=== PATIENT | male | born 1960 | race Caucasian/White ===

== ENCOUNTER 2023-10-06 13:08 | Outpatient (CLI) | payer BC, MEDICARE ==
--- NOTE | 2023-10-07 23:57 | Ultrasound Report ---
PROCEDURE: Head or Neck Soft Tissue INDICATIONS: MNG TECHNIQUE: Real-time scanning was performed of the thyroid gland, with image documentation. COMPARISON: No prior studies are available for review at the time of this dictation. FINDINGS: Right: Thyroid lobe measures 5.7 x 1.9 x 2.2 cm, and is homogeneous in echotexture. Left: Thyroid lobe measures 5.1 x 2.0 x 2.2 cm, and is homogenous in echotexture. Isthmus: 6 mm thick. IMPRESSION: Prominent sized thyroid. No focal thyroid nodules are seen on these images. Reviewed by: Bg Lamar MD on 10/07/2023 10:55 PM [facility] Approved by: Bg Lamar MD on 10/07/2023 10:55 PM [facility] Station ID: [id number]
== END 2023-10-06 13:09 | disposition home or self-care (01) ==
LOC: DI 13:08
PROVIDERS: ATTEND Internal Medicine
DX: E04.9 Nontoxic goiter, unspecified (principal)

== ENCOUNTER 2024-03-12 13:05 | Outpatient (CLI) | payer BC, MEDICARE ==
[2024-03-12 13:28] LABS: BASOPHILS % (AUTO) 0.6 %; EOSINOPHILS # (AUTO) 0.2 10^3/uL (0.0-0.7); EOSINOPHILS % (AUTO) 2.3 %; HCT - HEMATOCRIT 51.8 % (42.0-52.0); HGB - HEMOGLOBIN 16.4 g/dL (14.0-18.0); LYMPHOCYTES # (AUTO) 2.6 10^3/uL (1.5-3.5); LYMPHOCYTES % (AUTO) 37.8 %; MEAN CORPUSCULAR HEMOGLOBIN 28.5 pg (27.0-31.0); MEAN CORPUSCULAR HGB CONC 31.7 g/dL (32.0-36.0); MEAN CORPUSCULAR VOLUME 89.9 fL (80.0-94.0); MEAN PLATELET VOLUME 9.2 fL (7.4-11.4); MONOCYTES # (AUTO) 0.6 10^3/uL (0.0-1.0); MONOCYTES % (AUTO) 8.5 %; NEUTROPHILS # (AUTO) 3.5 10^3/uL (1.5-6.6); NEUTROPHILS % (AUTO) 50.7 %; PLT - PLATELET COUNT 261 10^3/uL (130-450); RED BLOOD COUNT 5.76 10^6/uL (4.70-6.10); RED CELL DISTRIBUTION WIDTH 13.5 % (12.0-15.0); WHITE BLOOD COUNT 6.9 x10^3/uL (4.8-10.8)
[2024-03-12 13:47] LABS: ALBUMIN 4.5 g/dL (3.2-5.5); ALBUMIN/GLOBULIN RATIO 1.4 (1.0-2.2); ALKALINE PHOSPHATASE 72 IU/L (42-121); ALT ALANINE AMINOTRANSFERASE 92 IU/L (10-60); AST ASPARTATE AMINOTRANSFERASE 60 IU/L (10-42); BILIRUBIN,TOTAL 0.8 mg/dL (0.2-1.0); BUN - BLOOD UREA NITROGEN 13 mg/dL (6-20); CALCIUM 9.9 mg/dL (8.5-10.3); CARBON DIOXIDE - CO2 26 mmol/L (21-32); CHLORIDE 102 mmol/L (101-111); CHOL/HDL RATIO 3.3 (<5.0); CHOLESTEROL 140 mg/dL; CREATININE 1.1 mg/dL (0.6-1.3); GFR - MDRD 67 (>89); GLUCOSE 121 mg/dL (74-104); HDL CHOLESTEROL 43 mg/dL; LDL CHOLESTEROL,CALCULATED 60 mg/dL; LDL/HDL RATIO 1.4 (<3.6); SODIUM 136 mmol/L (135-145); TOTAL PROTEIN 7.8 g/dL (6.4-8.9); TRIGLYCERIDES 184 mg/dL (48-352); VLDL CHOLESTEROL 37 mg/dL
[2024-03-12 14:01] LABS: THYROID STIMULATING HORMONE 2.18 uIU/mL (0.34-5.60)
[2024-03-12 20:20] LABS: ESTIMATED AVERAGE GLUCOSE 183 mg/dL (70-100)
== END 2024-03-12 13:06 | disposition home or self-care (01) ==
LOC: LAB 13:05
PROVIDERS: ATTEND Nurse Practitioner Family
DX: I10 Essential (primary) hypertension (principal); E11.65 Type 2 diabetes mellitus with hyperglycemia; Z12.5 Encounter for screening for malignant neoplasm of prostate
CPT/HCPCS: 36415; 80053; 80061; 82043; 83036; 83721; 84153; 84443; 85025

== ENCOUNTER 2024-05-07 15:00 | Outpatient (CLI) | payer BC, MEDICARE ==
--- NOTE | 2024-05-07 15:56 | Sleep Patient Instructions ---
Sleep Center Visit Summary - Patient Visit Information Reason for Visit: Initial consult for evaluation of sleep disordered breathing and other sleep issues. - Patient Instructions Additional Instructions: You will be completing a sleep study, either an in-lab polysomnography (PSG) or home sleep study (HST). You will follow-up in the sleep care office after the sleep study is completed to hear the results and talk about therapy, if needed. You will be called by our office staff to schedule this appointment, but you may contact us with any questions. - Clinic Information Contact: [facility] [address] [place] [id number] [email or web address] T: [phone]
--- NOTE | 2024-05-07 16:04 | SLEEP CARE CONSULTATION ---
Information from patient questionnaire entered by Laura Gonzáles. I have reviewed and concur with the information entered by Laura Gonzáles. This document represents the service I personally performed and the decisions made by me, Dennise Arnett ARNP. History of Present Illness Service Date and Time: 05/07/2024 1500 Reason for Visit: New patient, Previously diagnosed sleep apnea, sleep apnea on CPAP therapy Chief Complaint: reports: Other (UPDATE SUPPLIES) Usual bedtime: 2130 Time it takes to fall asleep: 5MINS Snores at night: Yes Observed to quit breathing while asleep: Yes Sleeps alone due to snoring: No Number of times waking at night: 0 Reasons for waking at night: reports: Bathroom Toss, Turn, or Twitch while sleeping: Yes Recalls having dreams: Yes Usually gets out of bed at: 0500 Feels refreshed in the morning: Yes Morning headache: No Sleepy or fatigued during the day: Yes Ever fallen asleep while driving: No Takes day naps: Yes Dreams during day naps: No Prior sleep studies: Yes Year and Where: [place]?, [place] 2004- Additional HPI information: CORDELIA PAYTON was previously diagnosed to have unknown, AHI unknown, sleep apnea- hypopnea syndrome and comes in today for CPAP therapy. He has not been back to see a sleep provider for about 20 years. He does not remember the name of the place that did his last sleep study. His machine is aging and has not been replaced since around 2004 or . - Parasomnia Symptoms Ever been unable to move upon waking from sleep: Yes Walks in sleep: No Talks in sleep: No Ever acted out dreams in sleep: No Ever felt weak in the knees when startled or emotional: Yes Bothered by creepy, crawly, restless sensations in legs: No Problems with memory or concentration: No CPAP Compliance Data - Data Reviewed with Patient Average duration of nightly device use: 5 hours 54 minutes Compliance rate %: 93.3 (03/07/2023-09/02/2023; 180/180 days used) Current pressure setting (cmH2O): 17 Average residual AHI: 0 (unknown value, not listed on download) Compliance data discussion: He has a REMstar CPAP that he received about 20 years. He is getting his supplies online. He is using a nasal pillows mask, Resmed Airfit P10. He has a spare mask if needed. Subjective Patient concerns: denies: aerophagia, mask discomfort, air blowing in eyes, mask leak noise, condensation in mask/hose, nasal congestion, dry mouth, nose, throat, epistaxis Observed to snore while using device: No Current pressure setting perceived as: comfortable On therapy, patient: reports: sleeping better, awakening more refreshed, being more awake and alert during the day, more rested overall. 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 Patient is and lives in [place]. Have you smoked in the past 12 months: No Alcohol use: Yes Alcohol amount and frequency: 6OZ 4 X PER YR Caffeine use: Yes Caffeine amount and frequency: 12OZ 8X PER YR Family History Family history of sleep disordered breathing: Yes Family Hx Sleep Apnea: Other: Snoring (DAUGHTER/SON), Sleep apnea - Treated (DAUGHTER), Sleep apnea - Untreated (SON) Allergies and Home Medications Known drug allergies: Yes ( LISTED ) Drug allergies reviewed: Yes Home medication list reviewed: Yes (as listed) Allergy and home medication list: Allergies dapagliflozin [From [facility]] Allergy (Verified 05/03/24 13:30) Medications: Metformin 500 mg 5 times a day bupropion 150 mg twice a day Jardiance 25 mg daily Ramipril 10 mg daily Amlodipine 5 mg daily Vitamin D3 2000 IU daily MVT daily Review of Systems Weight gain over past 5 years: 10 Weight loss over past 5 years: 10 Cardiovascular: reports: high blood pressure Gastrointestinal: reports: diarrhea. denies: heartburn Urinary: reports: incontinence, urgency Neurological: denies: seizure, head trauma Psychiatric: reports: depression Ear/Nose/Throat: reports: wisdom teeth removed. denies: injury to nose, tonsillectomy Endocrine: reports: history of goiter, increased urination Musculoskeletal: reports: joint pain Physical Exam Vital signs obtained and entered by: DENNISE ARELLANO Blood Pressure: 126/84 Cuff size: long (right arm) Heart Rate: 97 O2 Saturation: 96 Height: 5 ft 11.5 in Weight: 306 lb Body Mass Index: 42.0 BMI Classification: Morbidly Obese Neck circumference: 18.5 Mouth and throat: narrow oropharynx Soft palate: long Hard palate: normal Uvula: normal Uvula visualization: 25% Mallampati Class III Tongue: normal in size Tonsils: 1+ Heart: regular rate and rhythm Lungs: clear bilaterally Impression and Plan 1. Obstructive Sleep Apnea-Hypopnea Syndrome, unknown, with good treatment compliance and unknown apnea control. On CPAP therapy, the patient has better sleep quality and is more rested overall. Patient appears to have significant improvement of his sleep apnea and is comfortable with CPAP therapy. He does feel the pressure may be a little low at this time but his machine as at least 20 years old. We discussed that we will first need to do a sleep study to verify diagnosis and severity. At the follow-up, we will set him up with a new DME machine replacement. He voiced understanding and agreement with plan of care. Patient's apnea severity and rationale for treatment to reduce apnea, improve sleep quality and reduce cardiovascular and cerebrovascular events was reviewed. I also reviewed the benefit of consistent device use of CPAP for hypertension, cardiac disease, arrhythmia, diabetes, depression. 2. Obesity, unspecified. Currently patients BMI is 42. Obesity increases the risk of apnea, CPAP pressure requirements and overall health risks especially cardiovascular and diabetes. Thus patient is advised to lose weight. * Continue CPAP pressure at 17 cmH2O * PSG to verify diagnosis and severity * Update supply prescription * Notify me if snoring with mask or feeling that the pressure is too much or too little * Attempt to lose weight * Call this office if any problems using CPAP * Return for follow up after sleep study, or sooner if concerns arise Continue with device pressure at (cmH2O): 17 Counseling Topics: Spare mask, Weight loss health impact Plan: PSG and follow up Visit Type: In Office Time Spent with Patient (minutes): 38 Provider Statement: I spent 100% of the Face to Face Visit with the patient with greater than 50% spent counseling the patient and coordination of care.
[2024-05-07 16:12] VITALS: BP 126/84; O2SAT 96
== END 2024-05-07 15:01 | disposition home or self-care (01) ==
LOC: SC 15:00
PROVIDERS: ATTEND Nurse Practitioner Family
DX: G47.33 Obstructive sleep apnea (adult) (pediatric) (principal); E66.01 Morbid (severe) obesity due to excess calories; Z68.41 Body mass index [BMI] 40.0-44.9, adult; I49.9 Cardiac arrhythmia, unspecified; F32.A Depression, unspecified; E11.9 Type 2 diabetes mellitus without complications; I10 Essential (primary) hypertension
CPT/HCPCS: 99203; 99212

== ENCOUNTER 2024-05-23 14:01 | Outpatient (CLI) | payer BC, MEDICARE | END 2024-05-23 14:02 | disposition home or self-care (01) | LOC: SC 14:01 | PROVIDERS: ATTEND Nurse Practitioner Family | DX: G47.33 Obstructive sleep apnea (adult) (pediatric) (principal); R09.02 Hypoxemia | CPT/HCPCS: 95806 ==

== ENCOUNTER 2024-06-21 09:47 | Outpatient (CLI) | payer BC, MEDICARE ==
--- NOTE | 2024-06-21 09:49 | SLEEP CARE CONSULTATION ---
Information from patient questionnaire entered by Laura Gonzáles. I have reviewed and concur with the information entered by Laura Gonzáles. This document represents the service I personally performed and the decisions made by , Dennise Arnett ARNP. History of Present Illness Service Date and Time: 06/21/2024919 Initial [place] Sleepiness Scale score: 14 (05/07/24) Current [place] Sleepiness Scale score: 16 (06/21/24) Additional HPI information: CORDELIA PAYTON returns via video appointment today for follow up and results of the recently performed home sleep study. The sleep study done on 05/23/24 showed severe obstructive sleep apnea with an average AHI of 51 and eladio oxygen saturation of 77%. Patient is currently on a CPAP with pressure set at 17 cmH2O with significant improvement of his sleep apnea. After some discussion, the patient will continue with the nasal CPAP therapy. Sleep Study - Results Type of Sleep Study: Home sleep study (COMPLETED 05/23/24) Prior sleep studies: Yes Year and Where: [facility], [place] 2004- Polysomnography/Home Sleep Study results: Physician Impression: The quality of the study is good. The length of the study is adequate (> 240 minutes). Please also see the tabulated and graphic data. 1. Obstructive Sleep Apnea-Hypopnea (ICD-10 G47.33), severe, with an AHI of 51.0/hr and eladio SaO2 of 77%. During the study, the patient had 239 apneas (239 obstructive, 0 central, 0 mixed) and 100 hypopneas. The longest episode lasted 64.5 seconds. The respiratory events occurred more frequently during supine sleep (supine AHI was 61.2 and non-supine, 30.92). 2. Hypoxemia (ICD-10 R09.02), moderate, with the lowest oxygen saturation of 77 % and 56.9 minutes with SaO2 under 90%. Baseline oxygen saturation was normal (Average oxygen saturation was 92%). Allergies and Home Medications Allergy and home medication list: Allergies dapagliflozin [From [facility]] Allergy (Verified 06/21/24 09:25) Home Medications amLODIPine [Norvasc] See Rx Instructions .ROUTE .COMPLEX 06/21/24 [History Confirmed 06/21/24] Review of Systems Review of systems same as previous: Yes (NO CHANGE) Physical Exam Vital signs obtained and entered by: LAURA Angulo MA Height: 5 ft 10 in (PER PT) Weight: 310 lb (PER PT) Body Mass Index: 44.4 BMI Classification: Morbidly Obese Impression and Plan 1. Obstructive Sleep Apnea-Hypopnea Syndrome, severe, with eladio oxygen satu ration of 77%. Cordelia returns to hear the results of his sleep study. He says he still feels his pressure is a little too low and would like it turned up. I will adjust his pressure to 17-19 cm H2O and review at his compliance visit. His machine is about 20 years old and he needs a CPAP DME supplier. I will have my clinic office coordinator inform of DME options. Patient advised to contact this office if further supply problems. The patients CPAP is over 5 years old and of reasonable use. Thus, the CPAP will be updated. A DWO prescription will be made. Compliance guidelines for new device and follow up discussed. Patient's apnea severity and rationale for treatment to reduce apnea, improve sleep quality and reduce cardiovascular and cerebrovascular events was reviewed. I also reviewed the benefit of consistent device use of CPAP for hypertension, diabetes, cardiac disease, depression. 2. Hypoxemia, moderate, with a eladio oxygen saturation of 77% and 56.9 minutes spent under 90%. The baseline oxygen saturation was normal with an average oxygen saturation of 92%. 3. Obesity, unspecified. Currently patients BMI is 44.4. Obesity increases the risk of apnea, CPAP pressure requirements and overall health risks especially cardiovascular and diabetes. Thus patient is advised to lose weight. * Change auto CPAP pressure to 17-19 cmH2O * [facility] * Update machine * Update supply prescription * Notify me if snoring with mask or feeling that the pressure is too much or too little * Attempt to lose weight * Call this office if any problems using CPAP * Return for follow up one month after obtaining new device, or sooner if concerns arise Prescriptions: Auto CPAP, Device supplies (with [facility]) Follow up with Sleep Care in: other (for compliance followup) Visit Type: Telehealth Video Video Type: Doxshashi Patient Location: Home Location of Provider: Office Patient agrees and consents to this telehealth visit type: Yes Patient agrees to have their insurance billed: Yes Time Spent with Patient (minutes): 22 Provider Statement: I spent 100% of the Telehealth Video Call with the patient with greater than 50% spent counseling the patient and coordination of care.
== END 2024-06-21 09:48 | disposition home or self-care (01) ==
LOC: SC 09:47
PROVIDERS: ATTEND Nurse Practitioner Family
DX: G47.33 Obstructive sleep apnea (adult) (pediatric) (principal); R09.02 Hypoxemia; E66.01 Morbid (severe) obesity due to excess calories; Z68.41 Body mass index [BMI] 40.0-44.9, adult

== ENCOUNTER 2024-07-23 07:13 | Outpatient (CLI) | payer BC, MEDICARE | END 2024-07-23 07:14 | disposition home or self-care (01) | LOC: LAB 07:13 | PROVIDERS: ATTEND Internal Medicine | DX: I10 Essential (primary) hypertension (principal) | CPT/HCPCS: 36415; 82088; 82533; 83835; 84244 ==

== ENCOUNTER 2024-07-25 07:58 | Outpatient (CLI) | payer BC, MEDICARE ==
[2024-07-25 08:22] LABS: PROTEIN/CREATININE RATIO,URINE 0.1 (<=0.2)
[2024-07-25 08:23] LABS: CALCIUM 9.3 mg/dL (8.5-10.3); CREATININE 1.1 mg/dL (0.6-1.3); POTASSIUM 4.2 mmol/L (3.5-4.5)
== END 2024-07-25 07:59 | disposition home or self-care (01) ==
LOC: LAB 07:58
PROVIDERS: ATTEND Internal Medicine
DX: I10 Essential (primary) hypertension (principal); N05.9 Unspecified nephritic syndrome with unspecified morphologic changes; R80.9 Proteinuria, unspecified
CPT/HCPCS: 36415; 80048; 82570; 83497; 84156